=== PATIENT | female | born 1985 | race Caucasian/White ===

== ENCOUNTER 2016-09-10 10:24 | Emergency (ER) | payer OTHER ==
[2016-09-10 10:50] VITALS: BP 128/87
[2016-09-10 13:18] LABS: BASOPHIL % 0.7 % (0-2); PLATELET COUNT 175 x10^3mcL (130-400); RED CELL DISTRIBUTION WIDTH 13.3 % (11.5-14.5)
[2016-09-10 13:40] LABS: CALCIUM 9.1 mg/dL (8.5-10.1); CHLORIDE SERUM 102 mmol/L (98-107); CREATININE SERUM 0.4 mg/dL (0.6-1.0); GFR1 > 60 mL/min; GLUCOSE SERUM 89 mg/dL (74-106); POTASSIUM SERUM 4.4 mmol/L (3.5-5.1); SODIUM SERUM 138 mmol/L (136-145)
[2016-09-10 13:45] LABS: ALBUMIN 4.2 g/dL (3.4-5.0); ALKALINE PHOSPHATASE 61 U/L (46-116); ALT/SGPT 16 U/L (14-59); AST/SGOT 16 U/L (15-37); BILIRUBIN TOTAL 0.24 mg/dL (0.20-1.00); TOTAL PROTEIN, SERUM 7.3 g/dL (6.4-8.2)
== END 2016-09-10 15:20 | disposition home or self-care (01) ==
LOC: ED 10:24
PROVIDERS: Specialist
DX: R04.0 Epistaxis (principal); J33.9 Nasal polyp, unspecified; E03.9 Hypothyroidism, unspecified; F79 Unspecified intellectual disabilities; F84.0 Autistic disorder; E78.5 Hyperlipidemia, unspecified

== ENCOUNTER 2018-01-14 10:14 | Emergency (ER) | payer OTHER ==
[~2018-01-14] VITALS: Ht 154.9 cm; Wt 34.0 kg
[2018-01-14 10:25] VITALS: BP 108/62; Ht 154.9 cm; Wt 34.0 kg
== END 2018-01-14 10:40 | disposition home or self-care (01) ==
LOC: ED 10:14
DX: S05.11XA Contusion of eyeball and orbital tissues, right eye, initial encounter (principal); E78.5 Hyperlipidemia, unspecified; X58.XXXA Exposure to other specified factors, initial encounter; Y93.89 Activity, other specified; Y92.89 Other specified places as the place of occurrence of the external cause; Y99.8 Other external cause status